=== PATIENT | male | born 1995 | race Caucasian/White ===

== ENCOUNTER 2017-05-07 10:17 | Emergency (ER) | payer MEDICAID ==
[2017-05-07] MEDS: ALBUTEROL/IPRATROPIUM (NEB) 3 ML AMP HHN (12:30)
== END 2017-05-07 13:53 | disposition home or self-care (01) ==
LOC: FTE 10:17
DX: J20.9 Acute bronchitis, unspecified (principal); R05 Cough
CPT/HCPCS: 94664; 99284-25